=== PATIENT | male | born 1955 | race Caucasian/White ===

== ENCOUNTER 2018-09-15 12:24 | Day surgery (SDC) | payer OTHER, MEDICAID, SELFPAY ==
[2018-09-13 08:18] VITALS: BMI 23.6
[2018-09-15] VITALS (7 sets, daily range): BP systolic 120–147; BP diastolic 73–86; PULSE 66–77; RESP 11–16; TEMP 36.6–37.2; O2SAT 94–99; BMI 23.6
[2018-09-15] MEDS: LACTATED RINGERS 1,000 ML 42 ML IV (13:17)
--- NOTE | 2018-09-15 14:05 | PM.PREOP ---
Pre-operative Note Interval Note History & Physical reviewed/Exam performed by Physician: Yes Changes to H&P: No
--- NOTE | 2018-09-15 15:01 | SUR.OPER ---
Supine on padded OR bed, head on pillow, arms secured on padded arm boards at <90 degrees abduction, legs uncrossed, safety belt at thigh, tape over blanket over lower legs.
--- NOTE | 2018-09-15 15:04 | SUR.PREOP ---
Patient prepared and ready for delayed surgery. Family at bedside.
[2018-09-15] MEDS: CEFAZOLIN 2 GM/100 ML FROZ.PIGGY IV (15:07)
[2018-09-15] MEDS: BUPIVACAINE 0.5% W/ EPI (PF) VIAL 30 ML INJ (15:36)
[2018-09-15] MEDS: LIDOCAINE 1% 30 ML INJ INJ (15:37)
--- NOTE | 2018-09-15 16:30 | PM.OP.1 ---
Operative Date/Time/Diagnoses Date of procedure: 09/15/18 Time of procedure: 16:30 Pre-op diagnosis: Right inguinal hernia reducible Post-op diagnosis: same Procedure & Clinicians Procedure: Repair with plug and patch technique Same procedure as scheduled: Yes Indications: Symptomatic hernia Surgeon: Epi Cohen Click Yes if Unassisted: Yes Anesthesia Type: General Operative Notes Findings: Large direct hernia extending into the scrotum containing at least a ft of small bowel Closure Type: primary Specimen(s): none sent Prosthetic devices, grafts, tissues, transplants, or devices: Mesh Estimated Blood Loss (mL): 10 Blood products transfused: none Procedure in detail: The patient was placed supine on the operating room table and underwent general LMA anesthesia. He was prepped and draped in the usual fashion. A transverse incision was made overlying the internal ring and carried down to the level of the external oblique. The external oblique was opened parallel with its fibers through the external ring. The cord structures were elevated. The cremaster was opened proximally and search made for an indirect sac. A very large sac was identified and from the cord structures. It was transected in its proximal 3rd and dissected to the level of the deep epigastric vessels. Pursestring of 2 0 silk was placed to close the sac and then it was ligated with the same material.. The floor was examined and was found to be intact though the cord structures including the sac a greatly enlarged from what they should have been. A large plug was placed in the defect created by the hernia sac and was tacked into place with interrupted Ethibond suture at the level of the deep epigastric vessels the cremaster was closed over it. A potential hydrocele was identified in the cord structures distal and a large part of this was resected. A patch was placed across the floor and tacked to the pubic tubercle the posterior lamella the anterior rectus sheath, the ilioinguinal ligament, and superior and lateral the cord.. The opening was modified as necessary to prevent tight constriction of the cord. Sutures of 0 Tycron were used to secure the mesh. The external oblique was closed with a running 3 0 vicryl. The subcu was closed with interrupted 3 0 Vicryl. The skin was closed with a running 4 0 Vicryl subcuticular stitch and Steri-Strips. Dressing was applied, the patient was awakened, and the patient was taken to the recovery area in good condition. Complications: none Condition: stable Disposition: PACU Plan for aftercare: Follow-up in the office
--- NOTE | 2018-09-15 17:00 | SUR.PHASEI ---
Stable PACU stay. Dr. Cohen to bedside- spoke with pt, given prescription. to opd.
== END 2018-09-15 17:50 | disposition home or self-care (01) ==
PROVIDERS: PCP Nurse Practitioner Family; Visit Provider Specialist
PROC: (CPT 49505; principal; 2018-09-15 13:45)
DX: K40.90 Unilateral inguinal hernia, without obstruction or gangrene, not specified as recurrent (principal); I10 Essential (primary) hypertension
CPT/HCPCS: 49505; C1781; J0690; J1100; J2250; J2405; J2704; J3010